=== PATIENT | male | born 1935 | race Caucasian/White ===

== ENCOUNTER 2016-12-12 07:35 | Day surgery (SDC) | payer MEDICARE, OTHER ==
[2016-12-07 16:34] LABS: HEMATOCRIT 43.1 % (40.0-51.0); HEMOGLOBIN 14.4 g/dL (13.6-17.8)
[2016-12-07 16:48] LABS: PARTIAL THROMBO TIME 30.7 SEC (22.5-37.2)
[2016-12-07 17:05] LABS: CALCIUM, SERUM 9.2 MG/DL (8.5-10.4); CHLORIDE, SERUM 104 MMOL/L (96-112); CO2 (CARBON DIOXIDE) 28 MMOL/L (24-34); GFR AFRICAN AMERICAN 46 ML/MIN (>=60); GFR NON AFRICAN AMERICAN 40 ML/MIN (>=60); POTASSIUM, SERUM 4.3 MMOL/L (3.5-5.3); SODIUM, SERUM 141 MMOL/L (135-148)
[2016-12-07 17:06] LABS: BUN (BLOOD UREA NITROGEN) 25 MG/DL (6-23); GLUCOSE, SERUM 88 MG/DL (60-99)
--- NOTE | ~2016-12-12 | OP ---
Record Of Operation [facility] [address] [place]. [address] NAME: FOX AYOUB JR : 35 STATUS : [facility]#: [id number] AGE: 81 ADM/REG DATE : 12/12/16 MR#: [id number] REPORT SERV DATE: 12/12/16 DICTATED BY: LUCILLE QUAN DATE: 12/12/16 REPORT STATUS : Draft TRANSCRIBED BY: MODL DATE: 12/12/16 DATE OF PROCEDURE: 12/12/2016 POSTOPERATIVE DIAGNOSIS: Mixed malignant melanoma, squamous cell carcinoma of the scalp, with satellite nodules at 3, 7, and 9 o'clock, FNA squamous cell carcinoma. POSTOPERATIVE DIAGNOSIS: Mixed malignant melanoma, squamous cell carcinoma of the scalp, with satellite nodules at 3, 7, and 9 o'clock consistent with malignant melanoma. PROCEDURE PERFORMED: 1. Wide local excision of 3 o'clock satellite nodule with complex layered closure of 4.2 x 5 cm defect. 2. Wide local excision of 7 o'clock satellite nodule with primary complex closure of a 3 x 2 cm defect. 3. Wide local excision of 9 o'clock satellite nodule of melanoma with complex layered closure of a 4 x 2 cm defect. SURGEON: Lucille Quan M.D. INSTALLER TECHNICIAN: Kar Jean. ANESTHESIA: General. COMPLICATIONS: None. CONDITION: Stable to recovery. INDICATIONS: This is an 81-year-old male, with history of mixed squamous cell and malignant melanoma of the scalp, status post wide excision, with skin grafting, who developed subcutaneous nodules. Needle biopsy of the nodule showed findings suspicious for squamous cell carcinoma. The risks, benefits, and alternatives to excising these clinically evident satellite nodules were explained to the patient and he agreed. PROCEDURE IN DETAIL: The patient was identified in preoperative holding, taken back to the operating room, and placed supine on the operating room table. General anesthesia was established. He was prepped and draped in a standard fashion for the operation. A time-out was called. The patient and procedure were confirmed. A 1 cm margin was marked around the 3, 7, 9 o'clock nodules. These were infiltrated subcutaneously with 1% lidocaine with 1:100,000 epinephrine. Each nodule was excised with a combination of 15 blade and needle tip cautery. They were each tagged at 12 o'clock. Initially, the 3 o'clock nodule was assessed in the frozen section analysis. There was suspicion that this was not squamous cell carcinoma, but malignant melanoma. All the margins were clear. The 7 o'clock lesion was excised and tagged at 12 o'clock, and stitched at 12 o'clock and it was assessed. A decision was made to go ahead and perform frozen section on the other 2 nodules since these had not been biopsied in the office. They did glove turner to be melanoma. The margin was clear at the 7 o'clock nodule. The 9 o'clock nodule was excised and frozen section showed a Record Of Operation [address] [address] NAME: FOX AYOUB JR : 35 STATUS : [facility]#: [id number] AGE: 81 ADM/REG DATE : 12/12/16 MR#: [id number] REPORT SERV DATE: 12/12/16 DICTATED BY: LUCILLE QUAN DATE: 12/12/16 REPORT STATUS : Draft TRANSCRIBED BY: MODL DATE: 12/12/16 close margin at 9 o'clock. This was reexcised and sent for permanent pathology analysis since we knew this was melanoma. All the other frozen section margins were negative based on the findings despite this being melanoma. The 3 o'clock defect was 4.2 x 5.0 cm. Burow's triangle were excised. It was back cut at the galea for relaxation and closed in layers using 3-0 Vicryl and a combination of 1-0 Prolene [id number] stitch. The 7 o'clock margin and the 9 o'clock margin were both closed with a combination of Vicryl subcutaneous stitches, as well as [id number] 1-0 [id number]-afbaz stitches. The 7 o'clock defect was 3 x 2 cm and the 9 o'clock defect was 4 x 2 cm. Dermabond was placed over the incisions to help with weeping and bleeding. The patient tolerated the procedure well. There were no complications. PH/MODL Lucille Quan M.D. / [id number] CC: Lucille Quan M.D. Edis San M.D.
[~2016-12-12 07:35] MED LIST: ALEVE220 MG PO; ASA5GR PO; LIPITOR10 PO; MULTIPLE VIT PO; MULTIVITAMI1 PO; PRIN2.5 PO; T PO; UROXATRAL PO; ZYRTEC ALLGY10 MG PO
== END 2016-12-12 16:56 | disposition home or self-care (01) ==
LOC: SDC 07:35
PROVIDERS: Specialist
PROC: 0HQ0XZZ Repair Scalp Skin, External Approach (ICD-10-PCS; 2016-12-12)
PROC: 0HB0XZZ Excision of Scalp Skin, External Approach (ICD-10-PCS; principal; 2016-12-12 09:00)
DX: C44.42 Squamous cell carcinoma of skin of scalp and neck (principal); I10 Essential (primary) hypertension; I25.10 Atherosclerotic heart disease of native coronary artery without angina pectoris; N40.0 Benign prostatic hyperplasia without lower urinary tract symptoms; Z95.1 Presence of aortocoronary bypass graft; Z88.2 Allergy status to sulfonamides; Z79.82 Long term (current) use of aspirin; Z79.899 Other long term (current) drug therapy
CPT/HCPCS: 36415; 80048; 85014; 85018; 85730; 88305; 88331; 88332; 88341; 88342; 93005; A9270-GY; J0690; J2250; J2405; J3010

== ENCOUNTER 2017-02-01 08:34 | Day surgery (SDC) | payer MEDICARE, OTHER ==
[2017-01-31 09:55] LABS: HEMATOCRIT 41.9 % (40.0-51.0); HEMOGLOBIN 14.8 g/dL (13.6-17.8)
[2017-01-31 10:00] LABS: BUN (BLOOD UREA NITROGEN) 23 MG/DL (6-23); CALCIUM, SERUM 9.3 MG/DL (8.5-10.4); CHLORIDE, SERUM 108 MMOL/L (96-112); CO2 (CARBON DIOXIDE) 31 MMOL/L (24-34); CREATININE 1.54 MG/DL (0.70-1.30); GFR AFRICAN AMERICAN 48 ML/MIN (>=60); GFR NON AFRICAN AMERICAN 42 ML/MIN (>=60); GLUCOSE, SERUM 111 MG/DL (60-99); POTASSIUM, SERUM 4.2 MMOL/L (3.5-5.3); SODIUM, SERUM 141 MMOL/L (135-148)
--- NOTE | ~2017-02-01 | OP ---
Record Of Operation [facility] [address] [place]. [address] NAME: FOX AYOUB JR : 35 STATUS : [facility]#: [id number] AGE: 81 ADM/REG DATE : 02/01/17 MR#: [id number] REPORT SERV DATE: 02/01/17 DICTATED BY: LUCILLE QUAN DATE: 02/01/17 REPORT STATUS : Draft TRANSCRIBED BY: MODL DATE: 02/01/17 DATE OF PROCEDURE: 02/01/2017 PREOPERATIVE DIAGNOSIS: 7 cm x 4 cm right cheek defect. POSTOPERATIVE DIAGNOSIS: 7 cm x 4 cm right cheek defect. PROCEDURE PERFORMED: Cervical facial advancement flap closure of 7 cm x 4 cm right cheek defect. SURGEON: Lucille Quan M.D. TABLE GAMES MANAGER: Anayeli Jean M.D. ANESTHESIA: General. COMPLICATIONS: None. CONDITION: Stable to recovery. INDICATIONS: This is an 81-year-old male, status post melanoma, excision of the right cheek with delayed closure of 7 cm x 4 cm defect. All margins were clear on final pathology. The risks, benefits, and alternatives to closure were explained and he agreed. PROCEDURE IN DETAIL: The patient was identified in preoperative holding and taken back to the operating room and placed supine on the operating room table. General anesthesia was established. He was prepped and draped in a standard fashion for the operation. A time-out was called. The patient and procedure were confirmed. The incision was marked from the 7 cm x 4 cm defect into the preauricular skin crease and into the postauricular space and down into pre-existing skin crease in the neck. This was infiltrated subcutaneously with 1% lidocaine with 1:100,000 epinephrine. A total of 3 mL. A 15 blade was then used to make an incision through the skin and subcutaneous tissue, down to the SMAS layer of the skin over the parotid. We stayed superficial to the parotid fascia. We elevated the cervical facial advancement flap down into the neck just to the areas of anterior sternocleidomastoid muscle. We back cut until the flap could be inset with minimal tension. The flap was then rotated into the defect and secured with 3-0 Vicryl interrupted suture followed by 5-0 running locking Prolene. A Burow's triangle was removed in the cervical portion of the advancement flap to allow for a smooth closure. [place] were used for the neck portion of the cervical facial advancement flap after 3-0 Vicryl deep sutures were placed. The Steri- Strips were placed over the Prolene sutures of the cheek. Neosporin ointment was placed over the jyoti in the neck. The patient was awakened and taken to recovery in stable condition. PH/MODL Record Of Operation [address] [place] [address] NAME: FOX AYOUB : 35 STATUS : [facility]#: [id number] AGE: 81 ADM/REG DATE : 02/01/17 MR#: [id number] REPORT SERV DATE: 02/01/17 DICTATED BY: LUCILLE QUAN DATE: 02/01/17 REPORT STATUS : Draft TRANSCRIBED BY: FRANCO DATE: 02/01/17 Lucille Quan M.D. / [id number] CC: Mila Doe M.D.
== END 2017-02-01 13:18 | disposition home or self-care (01) ==
LOC: SDC 08:34
PROVIDERS: Specialist
PROC: 0HX1XZZ Transfer Face Skin, External Approach (ICD-10-PCS; principal; 2017-02-01 10:15)
DX: M95.2 Other acquired deformity of head (principal); I25.2 Old myocardial infarction; I10 Essential (primary) hypertension; Z79.82 Long term (current) use of aspirin; Z79.899 Other long term (current) drug therapy; Z88.2 Allergy status to sulfonamides; Z82.49 Family history of ischemic heart disease and other diseases of the circulatory system; Z95.1 Presence of aortocoronary bypass graft; Z98.41 Cataract extraction status, right eye; Z98.42 Cataract extraction status, left eye; Z90.49 Acquired absence of other specified parts of digestive tract; Z98.890 Other specified postprocedural states
CPT/HCPCS: 80048; 85014; 85018; 93005; J0690; J2370; J2405; J2710; J3010